=== PATIENT | male | born 1975 | race Caucasian/White ===

== ENCOUNTER → 2018-08-10 12:21 | Outpatient (CLI) | payer OTHER, SELFPAY | PROVIDERS: Family Provider Family Medicine; PCP Family Medicine | DX: Z23 Encounter for immunization (principal) | CPT/HCPCS: 90471; 90686 ==

== ENCOUNTER → 2023-09-25 12:16 | Outpatient (CLI) | payer OTHER, SELFPAY | PROVIDERS: Family Provider Family Medicine; Visit Provider Physician Assistant | DX: R31.9 Hematuria, unspecified (principal) | CPT/HCPCS: 87086 ==

== ENCOUNTER → 2023-09-25 12:58 | Outpatient (CLI) | payer OTHER, SELFPAY ==
--- NOTE | 2023-09-25 13:00 | DI.RAD.S_ITS ---
PROCEDURE: XR KUB INDICATIONS: hematuria TECHNIQUE: One view of the abdomen acquired. COMPARISON: [facility], CT, ABDOMEN WITH CONTRAST, 04/24/2015, 15:08. FINDINGS: Surgical changes and devices: None. Bowel: Bowel gas pattern is normal. Soft tissues: No suspicious abdominal calcifications. Visualized solid organ contours appear normal in size. Bones: No suspicious bony lesions. IMPRESSION: No definite kidney stones are seen by plain film. For further evaluation of the patient's presenting history of hematuria, please consider a dedicated hematuria protocol CT without and with contrast (assuming that there is no contraindication). Dictated by: Holger Downey M.D. on 09/25/2023 at 12:28 Approved by: Holger Downey M.D. on 09/25/2023 at 12:29
== END ==
PROVIDERS: Family Provider Family Medicine; Referring Provider Physician Assistant; Visit Provider Physician Assistant
DX: R31.9 Hematuria, unspecified (principal)
CPT/HCPCS: 74018; 87077; 87086; 87186

== ENCOUNTER 2024-02-21 06:50 | Day surgery (SDC) | payer OTHER, SELFPAY ==
--- NOTE | 2024-02-21 | PATH_ITS ---
[facility] Accession Number: [id number] No. of containers..01 Tissue . 01 Material submitted: . sigmoid colon - SIGMOID POLYPS . 01 Diagnosis: SIGMOID COLON, POLYPS: Tubular adenoma in two of four fragments. MRV 02/27/2024 1217 Local . 01 Electronically signed: . Samantha Cavanaugh MD, Pathologist NPI- [id number] . 01 Gross description: . SIGMOID POLYPS: Received in formalin are 4 fragment(s) of paredes, soft tissue measuring 0.3 x 0.2 x 0.2 cm to 0.6 x 0.4 x 0.3 cm submitted entirely in 1 cassette(s) /NICOLASA 02/23/2024 0006 Local . 01 Pathologist provided ICD-10: D12.5 . 01 CPT . 297496 Specimen Comment: A courtesy copy of this report has been sent to [phone] Performed at: 01 [facility] [address] [place] [address], [place], [place] [id number] MD Jacob Milligan MD Phone: [phone]
[2024-02-21 07:19] VITALS: BP 141/90; PULSE 74; RESP 17; TEMP 36.2; O2SAT 99
[2024-02-21] MEDS: LACTATED RINGERS 1,000 ML 42 ML IV (07:19)
--- NOTE | 2024-02-21 07:42 | PM.HP.1 ---
History of Present Illness History of Present Illness Date Patient Seen: 02/21/24 Time Patient Seen: 07:43 Chief complaint: Screening Colonoscopy Narrative: Austin is a 48-year-old man who is here for a screening colonoscopy. Never had a colonoscopy before. No family history of colon cancer. Otherwise healthy [facility] Medical History (Updated 02/21/24 @ 07:44 by Kt Contreras MD) Hearing decreased Calculus of gallbladder with acute cholecystitis Surgical History (Updated 11/17/23 @ 18:47 by Sheyla Ruiz) Anesthesia History of cholecystectomy (~03/2015) Family History (Updated 11/17/23 @ 18:49 by Sheyla Ruiz) Father CAD (coronary artery disease), [place] coronary artery Prostate cancer History of quadruple bypass Mother Breast cancer Social History marital status: Smoking Status: Never smoker alcohol intake: current substance use type: does not use Meds Home Medications and Allergies Home Medications Medication Instructions Recorded Confirmed Type Multivitamin 1 tab PO DAILY 01/24/19 02/21/24 History Allergies Allergy/AdvReac Type Severity Reaction Status Date / Time No Known Drug Allergies Allergy Verified 02/21/24 07:07 Exam Vital Signs (past 8 hours): - 02/21/24 07:19 Temperature 97.2 F L Pulse Rate 74 Respiratory Rate 17 Blood Pressure 141/90 H Pulse Oximetry 99 Oxygen Delivery Method Room Air Oxygen Delivery Method Room Air Const General: healthy appearing Resp Effort & Inspection: normal respiratory effort Assessment & Plan Assessment and plan (1) Colon cancer screening: Status: Acute Plan We reviewed the risks and benefits of colonoscopy for colon cancer screening and he would like to proceed.
[2024-02-21 08:17] VITALS: BP 109/73; PULSE 71; RESP 20; TEMP 36.4; O2SAT 96
--- NOTE | 2024-02-21 08:17 | PM.OP.COLON ---
Operative Date/Time/Diagnoses Date of procedure: 02/21/24 Time of procedure: 08:18 Pre-op diagnosis: Colon cancer screening Post-op diagnosis: same Procedure & Clinicians Study performed: Colonoscopy Same procedure as scheduled: Yes Surgeon: Kt Contreras Procedure Notes Procedure in detail: Surgeon: Kt Contreras MD Anesthesia: Samantha Weinberg CRNA Procedure: The patient was brought to the endoscopy suite, placed in left lateral decubitus position. The patient was connected to monitoring devices. A time-out was performed. Sedation was administered. Once the patient was adequately sedated, a digital rectal exam was performed and was normal. The scope was then inserted and advanced to the cecum where the appendiceal orifice was identified and photographed. The scope was then slowly withdrawn over greater than 6 minutes. The mucosa was thoroughly inspected. There were rare diverticula in the sigmoid colon. There were 3 small polyps in the sigmoid colon removed with cold snare and sent together. The scope was retroflexed in the rectum. No other abnormalities were seen. The scope was straightened and removed. The patient was awakened and brought to recovery. Scope withdrawal time: 19 minutes Sedation time: 22 minutes EBL: 5 mL Findings: Rare sigmoid colon diverticula and 3 small sigmoid colon polyps Post-procedure Disposition: PACU
[2024-02-21 08:22] VITALS: BP 108/68; PULSE 67; RESP 17; O2SAT 95
[2024-02-21 08:27] VITALS: BP 121/83; PULSE 63; RESP 14; O2SAT 98
[2024-02-21 08:33] VITALS: BP 113/73; PULSE 58; RESP 12; O2SAT 98
[2024-02-21 08:43] VITALS: BP 130/81; PULSE 62; RESP 14; TEMP 36.9; O2SAT 98
== END 2024-02-21 08:53 | disposition home or self-care (01) ==
PROVIDERS: Family Provider Family Medicine; PCP Family Medicine; Referring Provider Surgery; Visit Provider Surgery
PROC: 0DJD8ZZ Inspection of Lower Intestinal Tract, Via Natural or Artificial Opening Endoscopic (ICD-10-PCS; CPT 45378; principal; 2024-02-21 07:45)
DX: Z12.11 Encounter for screening for malignant neoplasm of colon (principal); K57.30 Diverticulosis of large intestine without perforation or abscess without bleeding; D12.5 Benign neoplasm of sigmoid colon
CPT/HCPCS: 45385; 36415; 80053; 80061; 84443; 85025; 86304; G0103; J2704

== ENCOUNTER → 2024-02-21 06:53 | Outpatient (CLI) | payer OTHER, SELFPAY ==
[2024-02-21 09:54] LABS: Add Manual Diff / Slide Review NO; Basophils Absolute Auto 0 /uL (0-100); Basophils Percent Auto 0.8 % (0-2); Eosinophils Absolute Auto 100 /uL (0-450); Eosinophils Percent Auto 2.6 % (2-4); Hematocrit 42.4 % (41-53); Hemoglobin 14.9 g/dL (13.5-17.5); Lymphocytes Absolute Auto 1800 /uL (1100-4500); Lymphocytes Percent Auto 32.2 % (25-40); Mean Corpuscular HGB Conc 35.1 % (30-36); Mean Corpuscular Hemoglobin 31.2 PG (26-34); Monocytes Absolute Auto 800 /uL (0-900); Monocytes Percent Auto 15.3 % (3-14); Neutrophils Absolute Auto 2700 /uL (1500-7000); Neutrophils Percent Auto 49.1 % (50-75); Platelet Count 199 X10^3/uL (150-400); Red Blood Cell Count 4.77 X10^6/uL (4.5-5.9); Red Cell Distribution Width 12.5 % (11.6-14.8); White Blood Cell Count 5.5 X10^3/uL (4.5-11.0)
[2024-02-21 10:22] LABS: Alanine Aminotransferase 105 IU/L (<50); Albumin 4.1 g/dL (3.5-5.0); Albumin Globulin Ratio 1.5 (1.0-2.8); Alkaline Phosphatase 50 U/L (38-126); Aspartate Aminotransferase 50 IU/L (17-59); BUN Creatinine Ratio 13.6 (6-22); Blood Urea Nitrogen 12 mg/dL (9-20); Calcium 9.1 mg/dL (8.4-10.2); Carbon Dioxide 30 mmol/L (22-32); Chloride 105 mmol/L (98-107); Cholesterol 147 mg/dL (140-199); Estimated Glomerular Filt Rate > 60 mL/min (>60); Globulin 2.7 g/dL (1.7-4.1); Glucose 83 mg/dL (70-100); HDL Cholesterol 31 mg/dL (40-60); HEMOLYSIS < 15 (0-50); LDL Cholesterol Calculated 56 mg/dL (<100); Sodium 141 mmol/L (137-145); Total Protein 6.8 g/dL (6.3-8.2); Triglycerides 302 mg/dL (35-150)
[2024-02-21 10:50] LABS: Thyroid Stimulating Hormone 2.13 uIU/mL (0.47-4.68)
[2024-02-21 10:51] LABS: Cancer Antigen 125 6.9 U/mL; Prostate Specific Antigen Scrn 2.09 ng/mL (0.1-4.0)
== END ==
PROVIDERS: Family Provider Family Medicine; PCP Family Medicine; Referring Provider Family Medicine; Visit Provider Family Medicine
DX: Z12.5 Encounter for screening for malignant neoplasm of prostate (principal); Z80.42 Family history of malignant neoplasm of prostate
CPT/HCPCS: 36415; 80053; 80061; 84443; 85025; 86304; G0103